=== PATIENT | female | born 1955 | race Hispanic/Latino ===

== ENCOUNTER 2017-03-18 23:43 | Emergency (ER) | payer BC ==
[~2017-03-18] VITALS: Ht 154.9 cm; Wt 86.2 kg
[~2017-03-18 23:43] MED LIST: AMLODIPINE5 MG PO; ASPIRIN81 MG PO; ATENOLOL50 MG PO; AVELOX400 MG OR; COMBIVENT IN; DILTIAZEM120 MG PO; FAMOTIDINE20 M1 PO; LASIX 20 MG20 MG/TAB PO; LEVAQUIN500 MG PO; METHYLPRED4 MG PO; METOPROL TAR25 MG PO; POT CHLORIDE10 ME1 PO; PROVENTIL HFA IN; QVAR80 MCG IN; TUSSIONEX PENNKI1 ML PO; VICODIN ES1 TAB OR
[2017-03-19] MEDS ORDERED: AMIODARONE200 MG PO (00:44)
[2017-03-19] MEDS ORDERED: CELEXA20 M1 PO (00:45)
[2017-03-19] MEDS ORDERED: DIGOXIN0.125 MG PO (00:45)
[2017-03-19] MEDS ORDERED: XARELTO10 MG PO (00:45)
[2017-03-19 00:46] LABS: HEMATOCRIT 41.3 % (37.0-47.0); HEMOGLOBIN 13.8 g/dl (12.0-16.0); IMMATURE GRANULOCYTES 0.6 % (0.0-1.0); MEAN CELL VOLUME 87.3 fL CALC (80.0-100.0); MEAN CORPUSCULAR HGB 29.2 pG CALC (26.0-32.0); MEAN CORPUSCULAR HGB CONC 33.4 g/L CALC (32.0-36.0); NEUT# 9.33 thou/uL (2.00-7.15); RED BLOOD COUNT 4.73 mill/uL (4.20-5.60); RED CELL DISTRI WIDTH 13.5 % (11.5-15.5)
[2017-03-19] MEDS ORDERED: MAG-OX 400400 MG PO (00:46)
[2017-03-19] MEDS ORDERED: ATORVASTATIN CA40 MG PO (00:46)
[2017-03-19] MEDS ORDERED: CIPROFLOXACN500 MG PO (00:47)
[2017-03-19 01:09] LABS: ALBUMIN 4.1 g/dL (3.2-5.0); ALKALINE PHOSPHATASE 170 u/l (38-126); AMYLASE 70 u/l (30-110); ANION GAP 14 (6-22 (CALC)); BILIRUBIN, TOTAL 0.6 mg/dL (0.0-1.4); BUN 12 mg/dL (7-17); BUN/CREATININE RATIO 13 (12-20 (CALC)); CALCIUM 8.9 mg/dL (8.4-10.2); CARBON DIOXIDE 30 mmol/l (22-30); CHLORIDE 103 mmol/l (95-108); CREATININE 0.9 mg/dL (0.5-1.0); GFR > 60 ML/MIN (>=60 (CALC)); GFR FOR AFR.AMER. > 60 ML/MIN (>=60 (CALC)); GLUCOSE 132 mg/dL (65-105); LIPASE 353 u/l (23-300); POTASSIUM 3.4 mmol/l (3.5-5.1); SGOT/AST 142 u/l (14-36); SGPT/ALT 77 u/l (9-52); SODIUM 144 mmol/l (137-146); TOTAL PROTEIN 7.8 g/dL (6.3-8.2)
[2017-03-19 01:22] LABS: MYOGLOBIN 24 ng/mL (0 - 62)
[2017-03-19] MEDS ORDERED: NORCO1 TA1 PO (02:27)
[2017-03-19 02:40] VITALS: BP 127/61
== END 2017-03-19 02:40 | disposition home or self-care (01) | DRG 446 ==
LOC: ED 23:43
PROVIDERS: Emergency Medicine
DX: K80.20 Calculus of gallbladder without cholecystitis without obstruction (principal); I10 Essential (primary) hypertension
CPT/HCPCS: Q9967; S0164

== ENCOUNTER 2020-05-09 21:57 | Inpatient (IN) | payer BC ==
[~2020-05-09] VITALS: Ht 152.4 cm; Wt 91.8 kg
[~2020-05-09 21:57] MED LIST changes: +AMIODARONE200 MG PO; +ATORVASTATIN CA40 MG PO; +CELEXA20 M1 PO; +CIPROFLOXACN500 MG PO; +DIGOXIN0.125 MG PO; +MAG-OX 400400 MG PO; +NORCO1 TA1 PO; +XARELTO10 MG PO
--- NOTE | 2020-05-09 22:15 | NUR ---
PATIENT AMBULATORY TO ROOM 6 WITH DAUGHTER FOR BEDSIDE TRIAGE. AWAITING MD GRIFFITH.
[2020-05-09] MEDS ORDERED: COZAAR100 MG PO (22:36)
[2020-05-09] MEDS ORDERED: PROAIR HFA108 MCG/AC (22:38)
--- NOTE | 2020-05-09 23:00 | NUR ---
RESTING QUIETLY. NAD. DAUGHTER AT BEDSIDE.
--- NOTE | 2020-05-10 | NUR ---
NO CHANGE IN EXAM. APPEARS COMFORTABLE.
[2020-05-10 00:28] LABS: HEMATOCRIT 38.7 % (37.0-47.0); HEMOGLOBIN 12.7 g/dl (12.0-16.0); IMMATURE GRANULOCYTES 0.2 % (0.0-5.0); MEAN CELL VOLUME 87.6 fL CALC (80.0-100.0); MEAN CORPUSCULAR HGB 28.7 pG CALC (26.0-32.0); MEAN CORPUSCULAR HGB CONC 32.8 g/dL CAL (32.0-36.0); NEUT# 3.58 thou/uL (2.00-7.15); RED BLOOD COUNT 4.42 mill/uL (4.20-5.60); RED CELL DISTRI WIDTH 13.7 % (11.5-15.5)
[2020-05-10 00:50] LABS: ACT PARTIAL THROMBO TIME 50.4 SECONDS (20.0-32.5); D-DIMER 0.34 mg/L (0.19-0.60); INTERNATIONAL NORMALIZED RATIO 1.5 RATIO (0.7-1.3); PROTHROMBIN TIME 15.5 SECONDS (9.0-12.5)
[2020-05-10 01:04] LABS: ALBUMIN 4.1 g/dL (3.2-5.0); ALKALINE PHOSPHATASE 89 u/l (38-126); ANION GAP 13 (6-22 (CALC)); BILIRUBIN, TOTAL 0.8 mg/dL (0.0-1.4); BUN 16 mg/dL (8-23); BUN/CREATININE RATIO 16 (12-20 (CALC)); C-REACTIVE PROTEIN 5.1 mg/dL (0-0.9); CARBON DIOXIDE 25 mmol/l (22-30); CHLORIDE 103 mmol/l (95-108); GFR 56 ML/MIN (>=60 (CALC)); GFR FOR AFR.AMER. > 60 ML/MIN (>=60 (CALC)); LIPASE 148 u/l (23-300); SGOT/AST 48 u/l (9-36); SODIUM 137 mmol/l (137-146); TOTAL PROTEIN 7.7 g/dL (6.3-8.2)
[2020-05-10 01:05] LABS: POTASSIUM 4.1 mmol/l (3.5-5.1)
--- NOTE | 2020-05-10 02:00 | NUR ---
RESTING QUIETLY. IV INFUSING WELL.
[2020-05-10] MEDS ORDERED: HYDROCHLOROT12.5 M1 PO (02:25)
[2020-05-10] MEDS ORDERED: TENORMIN PO (02:26)
[2020-05-10] MEDS ORDERED: AMIODARONE200 MG PO (02:27)
[2020-05-10] MEDS ORDERED: OMEPRAZOLE20 MG PO (02:28)
--- NOTE | 2020-05-10 02:41 | NUR ---
DECREASE IV RATE DUE TO PAIN AT SITE. PAIN RESOLVED.
--- NOTE | 2020-05-10 03:18 | NUR ---
IV INFUSING WITHOUT PROBLEM. PT APPEARS COMFORTABLE. NAD.
--- NOTE | 2020-05-10 05:56 | NUR ---
NO CHANGE IN EXAM. RESTING QUIETLY. AWAITING BED ASSIGNMENT.
[2020-05-10 07:15] VITALS: BP 143/70
--- NOTE | 2020-05-10 07:15 | NUR ---
PT ALERT AND ORIENTED IN NO DISTRESS. DAUGHTER AT BEDSIDE. BOTH PT AND DTR WEARING MASK. O2 @2LPM VIA NC, SAT 96%. LUNGS CLEAR BUT DIMINISHED BILATERALLY. SKIN CLEAR WITH NO NOTABLE SWELLING TO PERIPHERY. 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 UPDATED ON POC. SET UP FOR AM CARE.CALL LIGHT WITHIN REACH
--- NOTE | 2020-05-10 08:20 | NUR ---
PT UP TO BEDSIDE COMMODE TO URINATE 200 CC KRISTEL URINE. O2 SAT 93% ON O2@2LPM WHILE UP MOVING ABOUT. PT RETURNED TO BED AND BREAKFAST TRAY SETUP. O2 SAT RECOVERED TO 96% ON O2@2LPM AT REST. PT DENIED SOB OR CP. DTR CONTINUES AT BEDSIDE.
--- NOTE | 2020-05-10 08:40 | NUR ---
#22 RW REMOVED PER PT REQUEST, CATH TIP INTACT. #20 RAC STARTED, NO REDNESS OR SWELLING NOTED. PT TOLERATED WITHOUT DIFFICULTY. DAUGHTER AT BEDSIDE. CALL LIGHT WITHIN REACH.
--- NOTE | 2020-05-10 08:55 | NUR ---
RECEIVED PNEUMONIA VAX ASSESSMENT, PT CONSENTED. PT IS 64 YR OOLD, NOT A SMOKER, NO CHRONIC LUNG, LIVER, OR CARDIAC DISEASE, NO DM. PT DOESNT MEET CRITERIA FOR PNEUMOCOCCAL VAX
--- NOTE | 2020-05-10 09:30 | NUR ---
MOVED PT INTO REGULAR BED FOR COMFORT. PT STOOD AT BEDSIDE AND DENIES SOB OR CP. PT ASSISTED BACK TO BED IN NO DISTRESS. UPDATED ON WAIT TIME. PT MADE COMFORTABLE AND LIGHTS DIMMED FOR COMFORT
--- NOTE | 2020-05-10 15:17 | NUR ---
CALLED REPORT TO MS
--- NOTE | 2020-05-10 15:22 | NUR ---
[facility] [place] [facility]
[2020-05-10 15:30] VITALS: BP 131/65
--- NOTE | 2020-05-10 17:24 | NUR ---
PATIENT ALERT AND ORIENTED. SWED[place] SPEAKING PRIMARILY. BELONGINGS INCLUDE CPAP, CLOTHING, FEMININE PADS, CELL PHONE, AND A BABY TABATHA. IV SITE UNREMARKABLE. C/O BILATERAL CHEST PAIN 01/23. LAST BM 05/09/2020. C/O GENERALIZED WEAKNESS. O2 AT 2L N/C.
--- NOTE | 2020-05-10 19:08 | NUR ---
PATIENT DAUGHTER'S NAME IS HIPOLITO. PHONE NUMBER .
[2020-05-10 19:30] VITALS: BP 155/64
--- NOTE | 2020-05-10 23:26 | NUR ---
PT MEDICATED ORDERS PROVIDE. IV ANTIBIOTIC THERAPY ADMINISTERED AT THIS TIME. NO S/O DISTRESS NOTED. CALL LIGHT AT SIDE. GIGI RAYGOZA INTERPRETED FOR SEEDLING PULLER AT THIS TIME.
[2020-05-10 23:30] VITALS: BP 149/78
--- NOTE | 2020-05-11 00:05 | NUR ---
IV ANTIBIOTIC THERAPY COMPLETED AT THIS TIME. V/S OBTAINED BY CLAY PIGEON SETTER. PT DENIES ANY OTHER NEEDS.
[2020-05-11 03:20] VITALS: BP 158/65
--- NOTE | 2020-05-11 03:45 | NUR ---
PRODUCT/INDUSTRY CONSULTANT AT BEDSIDE OBTAINING V/S. BLOOD DRAWN FOR MORNING LABS. PT TOLERATED WELL. DENIES ANY OTHER NEEDS AT THIS TIME.
[2020-05-11 05:35] LABS: HEMATOCRIT 37.9 % (37.0-47.0); HEMOGLOBIN 12.5 g/dl (12.0-16.0); IMMATURE GRANULOCYTES 0.3 % (0.0-5.0); MEAN CELL VOLUME 88.1 fL CALC (80.0-100.0); MEAN CORPUSCULAR HGB 29.1 pG CALC (26.0-32.0); NEUT# 2.62 thou/uL (2.00-7.15); RED BLOOD COUNT 4.3 mill/uL (4.20-5.60); RED CELL DISTRI WIDTH 13.4 % (11.5-15.5)
[2020-05-11 06:00] LABS: ALBUMIN 3.4 g/dL (3.2-5.0); ALKALINE PHOSPHATASE 100 u/l (38-126); ANION GAP 9 (6-22 (CALC)); BILIRUBIN, TOTAL 0.5 mg/dL (0.0-1.4); BUN 14 mg/dL (8-23); BUN/CREATININE RATIO 16 (12-20 (CALC)); CARBON DIOXIDE 29 mmol/l (22-30); CHLORIDE 101 mmol/l (95-108); CREATININE 0.9 mg/dL (0.5-1.0); GFR > 60 ML/MIN (>=60 (CALC)); GFR FOR AFR.AMER. > 60 ML/MIN (>=60 (CALC)); POTASSIUM 3.3 mmol/l (3.5-5.1); SGOT/AST 35 u/l (9-36); SODIUM 136 mmol/l (137-146); TOTAL PROTEIN 6.8 g/dL (6.3-8.2)
[2020-05-11 06:02] LABS: C-REACTIVE PROTEIN 7.3 mg/dL (0-0.9)
[2020-05-11 08:02] VITALS: BP 134/61
--- NOTE | 2020-05-11 08:14 | NUR ---
Patient is screened for rehab intervention and it does not appear she has any needs at this time.
--- NOTE | 2020-05-11 10:16 | NUR ---
PATIENT ALERT AND ORIENTED. ROMANIAN SPEAKING C/O BILATERAL CHEST PAIN 02/23. LAST BM 05/09/2020. C/O GENERALIZED WEAKNESS. O2 AT 2L N/C. CALL ANSARI AND BELONGINGS WITHIN REACH.
[2020-05-11 11:00] VITALS: BP 130/57
[2020-05-11 15:44] VITALS: BP 104/52
[2020-05-11 18:50] VITALS: BP 135/68
--- NOTE | 2020-05-11 19:45 | NUR ---
ASSESSMENT COMPLETED. NO DISTRESS NOTED;DENIES NEEDS/PAIN. O2 INFUSING PER NC @1.5LITERS/MIN. NO RESP. DISTRESS NOTED; ENCOURAGED TO CALL FOR ANY NEEDS. CALL LIGHT IS IN REACH.
--- NOTE | 2020-05-11 22:15 | NUR ---
PT. RESTING IN BED WITH NO DISTRESS NOTED;DENIES NEEDS. CALL LIGHT IS IN REACH.
[2020-05-11 23:00] VITALS: BP 129/74
--- NOTE | 2020-05-11 23:21 | NUR ---
PT C/O SOB, PRN INHALER PROVIDED. MOUTH MOISTURIZER AND WATER WITH NO ICE PROVIDED WELL. PT DAUGHTER ON PHONE VIA O [place] TO TRANSLATE. PT DENIES ANY OTHER WANTS OR NEEDS. CALL LIGHT WITHIN REACH.
--- NOTE | 2020-05-12 00:15 | NUR ---
PT. RESTING IN BED NO DISTRESS NOTED; DENIES NEEDS. CALL LIGHT IS IN REACH. NORBERTO RECIO. WILL CONTINUE TO MONITOR.
[2020-05-12 04:20] VITALS: BP 146/55
--- NOTE | 2020-05-12 04:20 | NUR ---
VSS. NO DISTRESS NOTED; DENIES PAIN. INHALOR PROVIDED.FRESH WATER PROVIDED. IV SITE PATENT AND SL.
[2020-05-12 08:00] VITALS: BP 133/66
--- NOTE | 2020-05-12 09:00 | NUR ---
PT SEEN AWAKE, ALERT, ORIENTED X 3, AMBULATORY IN ROOM. PT DENIES SHORTNESS OF BREATH. PT USES THE SUPPLEMENTAL OXYGEN PRN.
[2020-05-12 11:36] VITALS: BP 149/73
--- NOTE | 2020-05-12 13:00 | NUR ---
PT SEEN BY DR BARCENAS. PT TO BE MONITORED FURTHER FOR CONTINUED IMPROVEMENT. PT DOES NOT HAVE SHORTNESS OF BREATH AT THIS TIME.
[2020-05-12 15:29] VITALS: BP 117/67
--- NOTE | 2020-05-12 16:45 | NUR ---
NO CHANGE IN STATUS PT CONTINUES RESTING IN THE BED, NO EVIDENCE OF DISTRESS.
[2020-05-12 18:50] VITALS: BP 140/67
--- NOTE | 2020-05-12 19:50 | NUR ---
ASSESSMENT COMPLETED. IV SITE PATENT AND SL, FLUSHES WELL. REPORTS NON-PRODUCTIVE COUGH, INHALOR PROVIDED PER ORDER. ENCOURAGED TO CALL FOR ANY NEEDS. VOICES NO CONCERNS. WATER PROVIDED. CALL LIGHT IS IN REACH.
--- NOTE | 2020-05-12 23:25 | NUR ---
VS OBTAINED. DENIES NEEDS/PAIN. ENCOURAGED TO CALL FOR ANY NEEDS. NORBERTO RECIO. WILL CONTINUE TO MONITOR.
[2020-05-12 23:31] VITALS: BP 153/78
[2020-05-13 03:47] VITALS: BP 152/80
--- NOTE | 2020-05-13 03:47 | NUR ---
PT. C/O CLAIRE AND MEDICATED WITH ORDERED 1X DOSE OF MOTRIN; WILL REASSESS. DENIES FURTHER NEEDS.
[2020-05-13 04:27] LABS: HEMATOCRIT 35.8 % (37.0-47.0); HEMOGLOBIN 12.1 g/dl (12.0-16.0); IMMATURE GRANULOCYTES 0.5 % (0.0-5.0); MEAN CELL VOLUME 86.9 fL CALC (80.0-100.0); MEAN CORPUSCULAR HGB 29.4 pG CALC (26.0-32.0); MEAN CORPUSCULAR HGB CONC 33.8 g/dL CAL (32.0-36.0); NEUT# 11.68 thou/uL (2.00-7.15); RED BLOOD COUNT 4.12 mill/uL (4.20-5.60); RED CELL DISTRI WIDTH 13.4 % (11.5-15.5)
[2020-05-13 04:39] LABS: ALBUMIN 3.4 g/dL (3.2-5.0); ALKALINE PHOSPHATASE 93 u/l (38-126); ANION GAP 12 (6-22 (CALC)); BILIRUBIN, TOTAL 0.4 mg/dL (0.0-1.4); BUN 22 mg/dL (8-23); BUN/CREATININE RATIO 26 (12-20 (CALC)); C-REACTIVE PROTEIN 5.9 mg/dL (0-0.9); CHLORIDE 104 mmol/l (95-108); CREATININE 0.8 mg/dL (0.5-1.0); GFR > 60 ML/MIN (>=60 (CALC)); GFR FOR AFR.AMER. > 60 ML/MIN (>=60 (CALC)); POTASSIUM 3.9 mmol/l (3.5-5.1); SGOT/AST 33 u/l (9-36); SODIUM 135 mmol/l (137-146); TOTAL PROTEIN 6.8 g/dL (6.3-8.2)
[2020-05-13 04:54] LABS: CARBON DIOXIDE 23 mmol/l (22-30)
[2020-05-13 08:00] VITALS: BP 146/76
--- NOTE | 2020-05-13 09:00 | NUR ---
PT SEEN AWAKE, ALERT, ORIENTED X 3, AMBULATORY IN ROOM. PT WITH CLEAR LUNG SOUNDS, HAS BEEN WEANED OFF SUPPLEMENTAL OXYGEN, HIGH 90s % WITHOUT. NO COMPLAINTS, NO DISTRESS.
[2020-05-13 12:27] VITALS: BP 132/59
--- NOTE | 2020-05-13 13:00 | NUR ---
PT WAS AMBULATED IN HALLWAY TO CHECK FOR OXYGEN DESATURATION. SHE STARTED AT 89% AND WENT DOWN TO 88% DURING AMBULATION. SHE DID NOT EXPERIENCE SHORTNESS OF BREATH. DR BARCENAS WAS MADE AWARE, WILL KEEP PT AT LEAST ANOTHER DAY. PT UNDERSTANDS.
[2020-05-13 16:09] VITALS: BP 144/56
--- NOTE | 2020-05-13 17:48 | NUR ---
PT SEEN RESTING IN THE BED WITH EYES CLOSED, NO APPARENT DISTRESS.
[2020-05-13 19:10] VITALS: BP 154/77
--- NOTE | 2020-05-13 19:10 | NUR ---
ASSESSMENT COMPLETED. NO DISTRESS NOTED; DENIES NEEDS/PAIN. ENCOURAGED TO CALL FOR ANY NEEDS. O2 IS OFF UNDERNEATH HER CHIN AND SPO2 UP TO 94% ON RA. IV SITE PATENT AND SL. VSS. FRESH WATER PROVIDED. ENCOURAGED TO CALL FOR ANY NEEDS. CALL LIGHT IS IN REACH.
--- NOTE | 2020-05-13 21:39 | NUR ---
PT. C/O CLAIRE AND MEDICATED WITH ORDERED PRN IBUPROFEN; WILL REASSESS. DENIES FURTHER NEEDS.
[2020-05-13 23:05] VITALS: BP 157/80
--- NOTE | 2020-05-14 | NUR ---
RESTING IN BED WITH NO DISTRESS NOTED; DENIES NEEDS/PAIN. ENCOURAGED TO CALL FOR ANY NEEDS. CALL LIGHT IS IN REACH. WILL CONTINUE TO MONITOR.
[2020-05-14 03:30] VITALS: BP 160/79
--- NOTE | 2020-05-14 03:30 | NUR ---
VSS. NO DISTRESS NOTED; DENIES NEEDS/PAIN. ENCOURAGED TO CALL FOR ANY NEEDS. PT. REMAINS ON 1 LITER/MIN PER NC AND SPO2 92% THIS AM. CALL LIGHT IS IN REACH. WILL CONTINUE TO MONITOR.
[2020-05-14 08:20] VITALS: BP 119/59
--- NOTE | 2020-05-14 08:20 | NUR ---
ASSESSMENT IS COMPLETED: IV SITE IS FREE FROM REDNESS OR EDEMA. HR IS REG,PULSES ARE STRONG X4, ABD IS SOFT WITH ACTIVE BS., BREATH SOUNDS ARE CLEAR AND DIMINSHED.O2 @ 1LITER NC. TELE MONITOR IN PLACE.
--- NOTE | 2020-05-14 09:50 | NUR ---
RENATO RIVAS SPEAK TO PT ON THE PHONE RE: MEDICATIONS AND THE TAKING OFF THE O2 TO SEE HOW SHE DOES. VERBALIZED UNDERSTANDING.
[2020-05-14 10:45] VITALS: BP 123/63
--- NOTE | 2020-05-14 12:30 | NUR ---
PT IS AMBULATING IN THE ROOM. O2 SATS WERE 91% THEN DROPPED TO 82
[2020-05-14] MEDS ORDERED: DECADRON6 MG PO ×2 (15:57)
[2020-05-14 16:28] VITALS: BP 136/66
--- NOTE | 2020-05-14 16:30 | NUR ---
PT HAS BEEN AMBULATING IN THE ROOM. O2 SATS ARE 82% REQUIRES O2.
--- NOTE | 2020-05-14 20:06 | NUR ---
SPOKE WITH DR MAYS RE: PT HAVING O2 AT HOME AND FAMILY WILL PICK HER UP AND BRING HER PORTABLE WITH HER. DISCHARGE INSTRUCTIONS TYPED AND WILL BE GIVEN BY PM NURSE.
--- NOTE | 2020-05-14 20:54 | NUR ---
IV site discontinued, cath intact. No edema , no redness, voices no discomfort.
--- NOTE | 2020-05-14 20:55 | NUR ---
Discharge instructions given. Patient verbalizes understanding of same. Discharged in stable condition via Wheelchair to Home with staff. All belongings sent with pt and home o2.
--- NOTE | 2020-05-22 09:56 | NUR ---
Pneumonia discharge follow up call performed today, 05/22/20. Spoke to patient's daughtyer. Pt. does not speak Lebanese. Daughter states her mother is doing much better. She no longer requires continuous O2. Uses oxygen when ambulating only. Pt. had follow up appt. with Dr. Bunch yesterday. Daughter states he was pleased with the patient's progress. Prednisone prescribed at discharge was obtained and is being taken without difficulty. Pt. will continue taking medication for 5 more days. No questions or needs expressed at this time. Appreciative of care and call.
== END 2020-05-14 20:54 | disposition home or self-care (01) | DRG 177 ==
LOC: ED 21:57 → ED-I 05-10 01:18 → ED 05-10 01:29 → ED-I 05-10 01:30 → MS2 05-10 15:01
PROVIDERS: Nurse Practitioner Family; ADMIT Internal Medicine; ATTEND Internal Medicine
DX: U07.1 COVID-19 (principal); J12.89 Other viral pneumonia; I10 Essential (primary) hypertension; I48.91 Unspecified atrial fibrillation; R09.02 Hypoxemia; E78.5 Hyperlipidemia, unspecified; Z79.01 Long term (current) use of anticoagulants

== ENCOUNTER 2020-08-26 13:14 | Emergency (ER) | payer BC ==
[~2020-08-26] VITALS: Ht 152.4 cm; Wt 86.0 kg
[~2020-08-26 13:14] MED LIST changes: +COZAAR100 MG PO; +DECADRON6 MG PO; +HYDROCHLOROT12.5 M1 PO; +OMEPRAZOLE20 MG PO; +PROAIR HFA108 MCG/AC; +TENORMIN PO
[2020-08-26 14:20] LABS: HEMATOCRIT 38.9 % (37.0-47.0); HEMOGLOBIN 12.8 g/dl (12.0-16.0); IMMATURE GRANULOCYTES 0.5 % (0.0-5.0); MEAN CELL VOLUME 87.4 fL CALC (80.0-100.0); MEAN CORPUSCULAR HGB 28.8 pG CALC (26.0-32.0); MEAN CORPUSCULAR HGB CONC 32.9 g/dL CAL (32.0-36.0); NEUT# 9.24 thou/uL (2.00-7.15); RED BLOOD COUNT 4.45 mill/uL (4.20-5.60); RED CELL DISTRI WIDTH 13.8 % (11.5-15.5)
[2020-08-26] MEDS ORDERED: LOSARTAN POTASS50 MG PO (14:25)
[2020-08-26 14:33] LABS: ALBUMIN 3.7 g/dL (3.2-5.0); ALKALINE PHOSPHATASE 96 u/l (38-126); AMYLASE 35 u/l (30-110); BUN 17 mg/dL (8-23); BUN/CREATININE RATIO 15 (12-20 (CALC)); CHLORIDE 100 mmol/l (95-108); CREATININE 1.2 mg/dL (0.5-1.0); GFR 45 ML/MIN (>=60 (CALC)); GFR FOR AFR.AMER. 55 ML/MIN (>=60 (CALC)); LIPASE 41 u/l (23-300); POTASSIUM 3.4 mmol/l (3.5-5.1); SGOT/AST 24 u/l (9-36); SODIUM 137 mmol/l (137-146); TOTAL PROTEIN 6.4 g/dL (6.3-8.2)
[2020-08-26 14:35] LABS: ANION GAP 11 (6-22 (CALC)); BILIRUBIN, TOTAL 1.1 mg/dL (0.0-1.4); CARBON DIOXIDE 29 mmol/l (22-30)
[2020-08-26 14:45] LABS: MYOGLOBIN 36 ng/mL (0 - 62)
[2020-08-26 14:47] LABS: URINE BILIRUBIN - DIPSTICK NEGATIVE (NEGATIVE); URINE BLOOD DIPSTICK LARGE (NEGATIVE); URINE GLUCOSE - DIPSTICK NEGATIVE (NEGATIVE); URINE KETONE NEGATIVE (NEGATIVE); URINE PROTEIN - DIPSTICK 100 mg/dL (NEG-TRACE)
[2020-08-26 14:53] LABS: URINE COLOR DK. YELLOW
[2020-08-26 14:54] LABS: URINE LEUK ESTERASE MODERATE (NEGATIVE); URINE NITRITE - DIPSTICK POSITIVE (Negative)
[2020-08-26 14:55] LABS: URINE BACTERIA MODERATE hpf; URINE RBC 25-50 RBC/hpf (0-5); URINE SQUAMOUS EPITHELIAL CELL FEW EPI/hpf (0-FEW); URINE WBC 50-100 WBC/hpf (0-5)
[2020-08-26 15:41] LABS: C-REACTIVE PROTEIN 13.4 mg/dL (0-0.9)
[2020-08-26 20:01] VITALS: BP 121/63
[2020-08-26] MEDS ORDERED: LEVAQUIN750 M1 PO (20:22)
== END 2020-08-26 21:01 | disposition home or self-care (01) | DRG 177 ==
LOC: ED 13:14
PROVIDERS: Emergency Medicine
DX: U07.1 COVID-19 (principal); J12.89 Other viral pneumonia; N39.0 Urinary tract infection, site not specified; I10 Essential (primary) hypertension; I48.91 Unspecified atrial fibrillation; E78.5 Hyperlipidemia, unspecified; B96.20 Unspecified Escherichia coli [E. coli] as the cause of diseases classified elsewhere; Z99.81 Dependence on supplemental oxygen
CPT/HCPCS: Q9967

== ENCOUNTER 2022-09-19 00:07 | Emergency (ER) | payer MEDICARE ==
[~2022-09-19] VITALS: Ht 152.4 cm; Wt 94.1 kg
[~2022-09-19 00:07] MED LIST changes: +LEVAQUIN750 M1 PO; +LOSARTAN POTASS50 MG PO
[2022-09-19 00:18] VITALS: BP 186/70
[2022-09-19 00:31] VITALS: BP 168/66
[2022-09-19 00:46] VITALS: BP 177/67
[2022-09-19 00:48] LABS: HEMATOCRIT 35.9 % (37.0-47.0); HEMOGLOBIN 11.8 g/dl (12.0-16.0); IMMATURE GRANULOCYTES 0.1 % (0.0-5.0); MEAN CORPUSCULAR HGB 29.6 pG CALC (26.0-32.0); MEAN CORPUSCULAR HGB CONC 32.9 g/dL CAL (32.0-36.0); NEUT# 7.85 thou/uL (2.00-7.15); RED BLOOD COUNT 3.99 mill/uL (4.20-5.60); RED CELL DISTRI WIDTH 13.5 % (11.5-15.5)
[2022-09-19] MEDS ORDERED: TESSALON PERLE100 MG PO (01:55)
[2022-09-19] MEDS ORDERED: VIBRAMYCIN100 M2 PO (01:55)
[2022-09-19 02:10] VITALS: BP 177/67
== END 2022-09-19 02:17 | disposition home or self-care (01) ==
LOC: ED 00:07
PROVIDERS: Family Medicine
DX: J20.9 Acute bronchitis, unspecified (principal); I10 Essential (primary) hypertension; E78.5 Hyperlipidemia, unspecified; I48.91 Unspecified atrial fibrillation; J45.909 Unspecified asthma, uncomplicated; Z86.16 Personal history of COVID-19; Z20.822 Contact with and (suspected) exposure to COVID-19